=== PATIENT | male | born 1955 | race Caucasian/White ===

== ENCOUNTER 2022-09-30 10:11 | Inpatient (IN) | payer OTHER, MEDICARE ==
[~2022-09-30] VITALS: Ht 190.5 cm; Wt 157.9 kg
[2022-09-30] VITALS (9 sets, daily range): BP systolic 121–148; BP diastolic 72–92
[2022-09-30] MEDS ORDERED: IOHEXOL 350 MG/ML 100ML INFUS..BTL IV ONE ×2 (14:36→14:40)
[2022-09-30] MEDS ORDERED: VERAPAMIL HCL 2.5 MG/ML VIAL ONE (14:36)
[2022-09-30] MEDS ORDERED: IOHEXOL-350 50ML VIAL IV ONE (14:36)
[2022-09-30] MEDS ORDERED: HEPARIN 10,000 UNIT/10ML (1,000 UNIT/ML) VIAL ONE (14:36)
[2022-09-30] MEDS ORDERED: MIDAZOLAM HCL 1 MG/ML 2ML VIAL ONE ×2 (14:37→15:26)
[2022-09-30] MEDS ORDERED: FENTANYL CITRATE PF 50 MCG/1 ML 2ML VIAL ONE (14:37)
[2022-09-30] MEDS ORDERED: LIDOCAINE HCL 400MG/20ML VIAL ONE (14:37)
[2022-09-30] MEDS ORDERED: NITROGLYCERIN 50MG VIAL ONE (14:45)
[2022-09-30] MEDS ORDERED: 0.9%NACL 1000ML 1,000 ML IV SCH (16:00)
[2022-09-30] MEDS ORDERED: DEXTROSE 50%-WATER 50 ML DISP.SYRIN IV PRN ×2 (16:00→17:00)
[2022-09-30] MEDS ORDERED: GLUCAGON 1MG KIT 1 MG ML IM PRN ×2 (16:00→17:00)
[2022-09-30] MEDS ORDERED: ONDANSETRON 4MG INJ IVP PRN (17:00)
[2022-09-30] MEDS ORDERED: MORPHINE 2 MG SYG IVP PRN (17:00)
[2022-09-30] MEDS ORDERED: ACETAMINOPHEN 325 MG TAB PO PRN (17:00)
[2022-09-30] MEDS: ATORVASTATIN 40 MG TABLET PO SCH (22:09)
[2022-09-30] MEDS ORDERED: LOSA100T58 PO (22:11)
[2022-09-30] MEDS ORDERED: GLIM4TAB36 PO (22:11)
[2022-09-30] MEDS: INSULIN HUMULIN R 100 UNIT/ML 3ML SQ SCH (22:16)
[2022-10-01 00:32] VITALS: BP 134/77
[2022-10-01 04:08] LABS: HEMATOCRIT 39.6 % (42-54); MEAN CORPUSCULAR HEMOGLOBIN 30.5 pg (27.0-33.0); MEAN CORPUSCULAR HGB CONC 32.8 g/dL (32.0-36.0); RED BLOOD CELL COUNT(AUTO) 4.26 MIL/uL (4.50-6.20); RED CELL DISTRIBUTION WIDTH 12.6 % (11.0-15.5); WHITE BLOOD COUNT (AUTO) 7.7 K/uL (4.8-10.8)
[2022-10-01 04:28] LABS: CREATININE 0.8 mg/dL (0.5-1.5); POTASSIUM 3.9 mmol/L (3.5-5.1)
[2022-10-01 05:21] VITALS: BP 132/76
[2022-10-01] MEDS: INSULIN HUMULIN R 100 UNIT/ML 3ML SQ SCH ×4 (07:22→20:48)
[2022-10-01] MEDS: ASPIRIN 81MG CHEW TAB PO SCH (08:28)
[2022-10-01 08:31] VITALS: BP 136/70
[2022-10-01] MEDS: METOPROLOL SUCCINATE 25 MG TAB.SR.24H PO SCH (11:41)
[2022-10-01 12:22] VITALS: BP 131/75
[2022-10-01 16:34] VITALS: BP 139/75
[2022-10-01] MEDS ORDERED: CEFAZOLIN SODIUM 2 GM VIAL IVPB SCH (17:30)
[2022-10-01 17:53] LABS: ABG OXYGEN SATURATION 96.2 % (95.0-99.0); ABG PCO2 32 mmHg (35-48)
[2022-10-01 20:03] VITALS: BP 124/70
[2022-10-01] MEDS: ATORVASTATIN 40 MG TABLET PO SCH (20:11)
[2022-10-02] VITALS (7 sets, daily range): BP systolic 84–132; BP diastolic 45–72
[2022-10-02 03:33] LABS: HEMATOCRIT 36.9 % (42-54); MEAN CORPUSCULAR HEMOGLOBIN 30.3 pg (27.0-33.0); MEAN CORPUSCULAR HGB CONC 32.8 g/dL (32.0-36.0); MEAN CORPUSCULAR VOLUME 92.3 fL (79-99); RED CELL DISTRIBUTION WIDTH 12.4 % (11.0-15.5); WHITE BLOOD COUNT (AUTO) 6.6 K/uL (4.8-10.8)
[2022-10-02 03:47] LABS: HEMOGLOBIN A1C 9.8 % (4.0-6.0)
[2022-10-02 03:53] LABS: CREATININE 0.7 mg/dL (0.5-1.5); POTASSIUM 3.5 mmol/L (3.5-5.1)
[2022-10-02 04:03] LABS: ALBUMIN 2.6 g/dL (3.5-5.0); TOTAL PROTEIN, SERUM 6.8 g/dL (6.0-8.3)
[2022-10-02 04:11] LABS: INR 1.05 (0.85-1.15); PROTHROMBIN TIME 11.4 SEC (9.6-11.6)
[2022-10-02 04:13] LABS: PARTIAL THROMBOPLASTIN TIME 32.4 SEC (26.3-35.5)
[2022-10-02] MEDS: INSULIN HUMULIN R 100 UNIT/ML 3ML SQ SCH ×3 (06:27→15:53)
[2022-10-02] MEDS: ASPIRIN 81MG CHEW TAB PO SCH (09:24)
[2022-10-02] MEDS: METOPROLOL SUCCINATE 25 MG TAB.SR.24H PO SCH (09:24)
[2022-10-02] MEDS ORDERED: NITROGLYCERIN 50MG/D5W 250ML 1 BOT ONE (13:12)
[2022-10-02] MEDS ORDERED: NOREPINEPHRINE BITARTRATE 8 MG in 0.9% NACL 250ML 250 ML IV PRN (14:30)
[2022-10-02] MEDS ORDERED: EPINEPHRINE PF 1MG (1:1,000) 10 MG in 0.9% NACL 250ML 240 ML IV PRN (14:30)
[2022-10-02] MEDS ORDERED: AMINOCAPROIC ACID 5,000MG VIAL 15,000 MG in 0.9% NACL 500ML IV.SOLN 420 ML IV PRN (14:30)
[2022-10-02] MEDS ORDERED: HEPARIN 10,000 UNIT/10ML (1,000 UNIT/ML) VIAL ONE ×2 (17:11→19:01)
[2022-10-02] MEDS ORDERED: CEFAZOLIN SODIUM 1 GM VIAL ONE ×2 (17:20→17:31)
[2022-10-02] MEDS ORDERED: PAPAVERINE HCL 30 MG/ML 2ML VIAL ONE (17:20)
[2022-10-02] MEDS ORDERED: SODIUM BICARB 50MEQ 50ML VIAL 250 ML ONE (17:42)
[2022-10-02] MEDS ORDERED: ROCURONIUM BROMIDE 10MG/1ML 5ML VL ONE (18:16)
[2022-10-02] MEDS ORDERED: MIDAZOLAM HCL 1 MG/ML 2ML VIAL ONE ×2 (18:50→19:02)
[2022-10-02] MEDS ORDERED: ESMOLOL HCL 10 MG/ML 10 ML VIAL ONE (19:00)
[2022-10-02] MEDS ORDERED: PROTAMINE SULFATE 10 MG/ML 25ML VIAL IV ONE (19:00)
[2022-10-02] MEDS ORDERED: NOREPINEPHRINE BITARTRATE 1 MG/1 ML ML IV ONE (19:01)
[2022-10-02] MEDS ORDERED: AMINOCAPROIC ACID 5,000MG VIAL ONE (19:01)
[2022-10-02] MEDS ORDERED: LIDOCAINE PF 100MG/5ML (2%) SYRINGE 5ML ONE ×2 (19:01→19:03)
[2022-10-02] MEDS ORDERED: EPINEPHRINE PF 1MG (1:1,000) 1 MG/ML AMP ONE (19:01)
[2022-10-02] MEDS ORDERED: SODIUM BICARB 50MEQ 50ML VIAL 150 ML ONE (19:01)
[2022-10-02] MEDS ORDERED: ROCURONIUM 10MG/1ML SYR 10 MG/ML ML ONE (19:02)
[2022-10-02] MEDS ORDERED: PROPOFOL 10 MG/ML 20ML VIAL IV ONE (19:02)
[2022-10-02] MEDS ORDERED: FENTANYL CITRATE PF 50 MCG/1 ML 20ML VIAL IJ ONE (19:02)
[2022-10-02] MEDS ORDERED: ETOMIDATE 20MG VIAL ONE (19:03)
[2022-10-02 19:42] LABS: ABG BASE EXCESS -1.9 mmol/L (-2.0-3.0); ABG HCO3 22.2 mmol/L (21.0-28.0); ABG OXYGEN SATURATION 99.8 % (95.0-99.0); ABG PCO2 36 mmHg (35-48)
[2022-10-02] MEDS ORDERED: EPINEPHRINE IV PRN (20:00)
[2022-10-02] MEDS ORDERED: POTASSIUM PHOS 15 mMOL+NS250ML 250 ML IV PRN (20:00)
[2022-10-02] MEDS ORDERED: MORPHINE 2 MG SYG IV PRN (20:00)
[2022-10-02] MEDS ORDERED: ONDANSETRON 4MG INJ IV PRN (20:00)
[2022-10-02] MEDS ORDERED: PROPOFOL 1000 MG/100 ML 100 ML IV PRN (20:00)
[2022-10-02] MEDS ORDERED: 0.9%NACL 10ML VIAL IVP PRN (20:00)
[2022-10-02] MEDS ORDERED: MORPHINE 4 MG SYG IV PRN (20:00)
[2022-10-02] MEDS ORDERED: 0.9% NACL 500ML IV.SOLN 500 ML IV SCH (20:00)
[2022-10-02] MEDS ORDERED: GLUCAGON 1MG KIT 1 MG ML IM PRN (20:00)
[2022-10-02] MEDS ORDERED: ACETAMINOPHEN 650 MG SUPPOSITORY RC PRN (20:00)
[2022-10-02] MEDS ORDERED: DEXTROSE 50%-WATER 50 ML DISP.SYRIN IV PRN (20:00)
[2022-10-02] MEDS ORDERED: ALBUMIN (HUMAN) 5% 250 ML IV PRN (20:00)
[2022-10-02] MEDS ORDERED: NOREPINEPHRIN 4MG/NS 250ML 250 ML IV PRN (20:00)
[2022-10-02] MEDS ORDERED: 0.9%NACL 1000ML 1,000 ML IV SCH (20:00)
[2022-10-02] MEDS ORDERED: NACL 0.9% IV PRN (20:00)
[2022-10-02] MEDS ORDERED: AMINOCAPROIC ACID 5,000MG VIAL 15,000 MG in 0.9% NACL 250ML 250 ML IV SCH (20:00)
[2022-10-02] MEDS ORDERED: NITROGLYCERIN 50MG/D5W 250ML 250 BOT IV SCH (20:00)
[2022-10-02] MEDS ORDERED: SODIUM BICARB 50MEQ 50ML VIAL 200 ML ONE (20:19)
[2022-10-02] MEDS ORDERED: AMIODARONE 150MG VIAL ONE (20:20)
[2022-10-02 20:35] LABS: ABG BASE EXCESS -3.6 mmol/L (-2.0-3.0); ABG OXYGEN SATURATION 99.6 % (95.0-99.0); ABG PCO2 36 mmHg (35-48)
[2022-10-02 21:24] LABS: ABG BASE EXCESS 2.4 mmol/L (-2.0-3.0); ABG OXYGEN SATURATION 99.4 % (95.0-99.0); ABG PCO2 37 mmHg (35-48)
[2022-10-02 21:48] LABS: ABG BASE EXCESS -1.5 mmol/L (-2.0-3.0); ABG HCO3 22.9 mmol/L (21.0-28.0); ABG OXYGEN SATURATION 99.3 % (95.0-99.0); ABG PCO2 38 mmHg (35-48)
[2022-10-02 22:16] LABS: ABG BASE EXCESS 7.7 mmol/L (-2.0-3.0); ABG HCO3 32.3 mmol/L (21.0-28.0); ABG OXYGEN SATURATION 99.1 % (95.0-99.0); ABG PCO2 46 mmHg (35-48)
[2022-10-02] MEDS ORDERED: NEOSTIGMINE 5MG/5ML SYR IV ONE (22:52)
[2022-10-02] MEDS ORDERED: GLYCOPYRROLATE 1 MG/5 ML SYRINGE ONE (22:53)
[2022-10-02 23:31] LABS: ABG BASE EXCESS -5.6 mmol/L (-2.0-3.0); ABG HCO3 20.5 mmol/L (21.0-28.0); ABG OXYGEN SATURATION 90.3 % (95.0-99.0); ABG PCO2 43 mmHg (35-48)
[2022-10-02 23:36] LABS: HEMATOCRIT 35.1 % (42-54); MEAN CORPUSCULAR HEMOGLOBIN 30.4 pg (27.0-33.0); MEAN CORPUSCULAR HGB CONC 33.3 g/dL (32.0-36.0); MEAN CORPUSCULAR VOLUME 91.2 fL (79-99); RED BLOOD CELL COUNT(AUTO) 3.85 MIL/uL (4.50-6.20); RED CELL DISTRIBUTION WIDTH 12.2 % (11.0-15.5); WHITE BLOOD COUNT (AUTO) 12.7 K/uL (4.8-10.8)
[2022-10-02 23:49] LABS: CREATININE 0.8 mg/dL (0.5-1.5); INR 1.24 (0.85-1.15); MAGNESIUM 1.6 mg/dL (1.80-2.40); PHOSPHORUS 4.8 mg/dL (2.5-4.9); POTASSIUM 3.5 mmol/L (3.5-5.1); PROTHROMBIN TIME 13.4 SEC (9.6-11.6)
[2022-10-02 23:50] LABS: PARTIAL THROMBOPLASTIN TIME 23.8 SEC (26.3-35.5)
[2022-10-03] VITALS (96 sets, daily range): BP systolic 79–170; BP diastolic 33–86
[2022-10-03] MEDS ORDERED: DEXMEDETOMIDINE 400MCG/NS100ML IV ONE (00:23)
[2022-10-03] MEDS: MAGNESIUM 2GM PREMIX 50ML 50 ML IV PRN ×2 (00:38→14:13)
[2022-10-03] MEDS: SODIUM BICARB 50MEQ 50ML VIAL IV PRN ×4 (00:38→17:30)
[2022-10-03] MEDS: POTASSIUM CHLORIDE 20MEQ/100ML 100 ML IV PRN ×8 (00:39→23:49)
[2022-10-03 00:40] LABS: ABG HCO3 24.5 mmol/L (21.0-28.0); ABG OXYGEN SATURATION 94.7 % (95.0-99.0); ABG PCO2 44 mmHg (35-48)
[2022-10-03] MEDS: CEFAZOLIN SODIUM 1 GM VIAL IV SCH ×3 (01:11→16:40)
[2022-10-03] MEDS: INSULIN REGULAR, HUMAN 3ML 100 UNIT in 0.9%NACL 100ML 99 ML IV SCH ×4 (01:13→08:04)
[2022-10-03] MEDS: DEXMEDETOMIDINE 400MCG/NS100ML IV SCH ×3 (01:15→04:43)
[2022-10-03] MEDS: ATORVASTATIN 40 MG TABLET PO SCH ×2 (01:17→19:45)
[2022-10-03] MEDS: FAMOTIDINE 20MG VIAL IV SCH ×3 (01:17→19:45)
[2022-10-03 01:42] LABS: ABG BASE EXCESS 0.9 mmol/L (-2.0-3.0); ABG OXYGEN SATURATION 94.8 % (95.0-99.0); ABG PCO2 43 mmHg (35-48)
[2022-10-03 02:46] LABS: ABG BASE EXCESS 1.2 mmol/L (-2.0-3.0); ABG HCO3 25.7 mmol/L (21.0-28.0); ABG OXYGEN SATURATION 97.5 % (95.0-99.0); ABG PCO2 41 mmHg (35-48)
[2022-10-03 03:51] LABS: ABG BASE EXCESS 2.4 mmol/L (-2.0-3.0); ABG HCO3 26.5 mmol/L (21.0-28.0); ABG OXYGEN SATURATION 96.6 % (95.0-99.0); ABG PCO2 40 mmHg (35-48)
[2022-10-03 04:00] LABS: HEMATOCRIT 35.2 % (42-54); MEAN CORPUSCULAR HEMOGLOBIN 30.5 pg (27.0-33.0); MEAN CORPUSCULAR HGB CONC 33.2 g/dL (32.0-36.0); MEAN CORPUSCULAR VOLUME 91.9 fL (79-99); RED BLOOD CELL COUNT(AUTO) 3.83 MIL/uL (4.50-6.20); RED CELL DISTRIBUTION WIDTH 12.2 % (11.0-15.5); WHITE BLOOD COUNT (AUTO) 11.8 K/uL (4.8-10.8)
[2022-10-03 04:12] LABS: INR 1.16 (0.85-1.15); PROTHROMBIN TIME 12.5 SEC (9.6-11.6)
[2022-10-03 04:14] LABS: PARTIAL THROMBOPLASTIN TIME 25.9 SEC (26.3-35.5)
[2022-10-03 04:18] LABS: ALBUMIN 2.5 g/dL (3.5-5.0); PHOSPHORUS 3.3 mg/dL (2.5-4.9); POTASSIUM 3.9 mmol/L (3.5-5.1); TOTAL PROTEIN, SERUM 5.9 g/dL (6.0-8.3)
[2022-10-03 05:06] LABS: ABG BASE EXCESS 0.7 mmol/L (-2.0-3.0); ABG HCO3 24.4 mmol/L (21.0-28.0); ABG OXYGEN SATURATION 97.7 % (95.0-99.0); ABG PCO2 36 mmHg (35-48)
[2022-10-03 06:24] LABS: ABG BASE EXCESS 2.6 mmol/L (-2.0-3.0); ABG HCO3 25.9 mmol/L (21.0-28.0); ABG OXYGEN SATURATION 95.6 % (95.0-99.0); ABG PCO2 36 mmHg (35-48)
[2022-10-03] MEDS: ACETAMINOPHEN 325 MG TAB PO PRN ×2 (06:36→11:46)
[2022-10-03 07:37] LABS: ABG BASE EXCESS 2.1 mmol/L (-2.0-3.0); ABG HCO3 24.9 mmol/L (21.0-28.0); ABG OXYGEN SATURATION 95.9 % (95.0-99.0); ABG PCO2 33 mmHg (35-48)
[2022-10-03] MEDS ORDERED: 0.9%NACL 100ML 100 ML ONE (07:51)
[2022-10-03 08:32] LABS: ABG BASE EXCESS 4.1 mmol/L (-2.0-3.0); ABG HCO3 27.8 mmol/L (21.0-28.0); ABG PCO2 38 mmHg (35-48)
[2022-10-03] MEDS: TRAMADOL HCL 50 MG TABLET PO PRN ×2 (09:20→19:45)
[2022-10-03] MEDS ORDERED: ALBUMIN (HUMAN) 5% 500 ML IV SCH (09:30)
[2022-10-03] MEDS ORDERED: ASPIRIN 81 MG EC TAB ONE (09:50)
[2022-10-03] MEDS ORDERED: NOREPINEPHRIN 8MG/250ML NS PMX 250 ML IV ONE (09:52)
[2022-10-03 09:53] LABS: ABG BASE EXCESS 0.9 mmol/L (-2.0-3.0); ABG HCO3 23.7 mmol/L (21.0-28.0); ABG OXYGEN SATURATION 97.3 % (95.0-99.0); ABG PCO2 32 mmHg (35-48)
[2022-10-03] MEDS ORDERED: NOREPINEPHRINE 8MG/NS 250ML PREMIX IV SCH (10:00)
[2022-10-03] MEDS: ASPIRIN 81 MG EC TAB PO SCH (10:15)
[2022-10-03 11:43] LABS: ABG BASE EXCESS 6.1 mmol/L (-2.0-3.0); ABG HCO3 32.7 mmol/L (21.0-28.0); ABG OXYGEN SATURATION 96.5 % (95.0-99.0); ABG PCO2 56 mmHg (35-48)
[2022-10-03 11:57] LABS: ABG BASE EXCESS 5.1 mmol/L (-2.0-3.0); ABG HCO3 29.3 mmol/L (21.0-28.0); ABG OXYGEN SATURATION 95.9 % (95.0-99.0); ABG PCO2 41 mmHg (35-48)
[2022-10-03 13:09] LABS: ABG BASE EXCESS 2.7 mmol/L (-2.0-3.0); ABG HCO3 26.2 mmol/L (21.0-28.0); ABG OXYGEN SATURATION 96.9 % (95.0-99.0); ABG PCO2 37 mmHg (35-48)
[2022-10-03 13:26] LABS: HEMATOCRIT 32.8 % (42-54); MEAN CORPUSCULAR HEMOGLOBIN 30.2 pg (27.0-33.0); MEAN CORPUSCULAR HGB CONC 33.5 g/dL (32.0-36.0); MEAN CORPUSCULAR VOLUME 90.1 fL (79-99); RED BLOOD CELL COUNT(AUTO) 3.64 MIL/uL (4.50-6.20); RED CELL DISTRIBUTION WIDTH 12.4 % (11.0-15.5); WHITE BLOOD COUNT (AUTO) 9.1 K/uL (4.8-10.8)
[2022-10-03 14:35] LABS: ABG BASE EXCESS 0.6 mmol/L (-2.0-3.0); ABG HCO3 24.8 mmol/L (21.0-28.0); ABG OXYGEN SATURATION 95.3 % (95.0-99.0); ABG PCO2 38 mmHg (35-48)
[2022-10-03 17:26] LABS: ABG BASE EXCESS -0.8 mmol/L (-2.0-3.0); ABG HCO3 24.2 mmol/L (21.0-28.0); ABG OXYGEN SATURATION 93.9 % (95.0-99.0); ABG PCO2 41 mmHg (35-48)
[2022-10-03 21:29] LABS: ABG BASE EXCESS 0.4 mmol/L (-2.0-3.0); ABG HCO3 24.3 mmol/L (21.0-28.0); ABG PCO2 37 mmHg (35-48)
[2022-10-03] MEDS: CALCIUM GLUC 1GM 1 GM in 0.9%NACL 50ML 50 ML IV PRN (21:42)
[2022-10-04] VITALS (85 sets, daily range): BP systolic 104–175; BP diastolic 51–91
[2022-10-04 00:32] LABS: ABG BASE EXCESS -0.6 mmol/L (-2.0-3.0); ABG HCO3 24.1 mmol/L (21.0-28.0); ABG OXYGEN SATURATION 92.6 % (95.0-99.0); ABG PCO2 40 mmHg (35-48)
[2022-10-04] MEDS: TRAMADOL HCL 50 MG TABLET PO PRN ×2 (02:07→11:11)
[2022-10-04 04:30] LABS: ABG BASE EXCESS -1.8 mmol/L (-2.0-3.0); ABG OXYGEN SATURATION 96.4 % (95.0-99.0); ABG PCO2 39 mmHg (35-48)
[2022-10-04 04:36] LABS: CREATININE 0.8 mg/dL (0.5-1.5); MAGNESIUM 1.8 mg/dL (1.80-2.40); POTASSIUM 4.6 mmol/L (3.5-5.1)
[2022-10-04] MEDS: SODIUM BICARB 50MEQ 50ML VIAL IV PRN ×3 (04:41→17:36)
[2022-10-04] MEDS: CALCIUM GLUC 1GM 1 GM in 0.9%NACL 50ML 50 ML IV PRN ×4 (04:50→21:29)
[2022-10-04 06:04] LABS: HEMATOCRIT 30.7 % (42-54); MEAN CORPUSCULAR HEMOGLOBIN 30.2 pg (27.0-33.0); MEAN CORPUSCULAR HGB CONC 32.9 g/dL (32.0-36.0); MEAN CORPUSCULAR VOLUME 91.9 fL (79-99); RED BLOOD CELL COUNT(AUTO) 3.34 MIL/uL (4.50-6.20); RED CELL DISTRIBUTION WIDTH 12.7 % (11.0-15.5); WHITE BLOOD COUNT (AUTO) 10.7 K/uL (4.8-10.8)
[2022-10-04 06:10] LABS: ABG BASE EXCESS 1.8 mmol/L (-2.0-3.0); ABG HCO3 26.5 mmol/L (21.0-28.0); ABG OXYGEN SATURATION 95.2 % (95.0-99.0); ABG PCO2 42 mmHg (35-48)
[2022-10-04] MEDS: MAGNESIUM 2GM PREMIX 50ML 50 ML IV PRN (07:25)
[2022-10-04] MEDS: FUROSEMIDE 20 MG TABLET PO SCH ×2 (08:58→17:37)
[2022-10-04] MEDS: ASPIRIN 81 MG EC TAB PO SCH (08:58)
[2022-10-04] MEDS: FAMOTIDINE 20MG VIAL IV SCH ×2 (08:58→21:28)
[2022-10-04] MEDS ORDERED: DEXTROSE 50%-WATER 50 ML DISP.SYRIN IV PRN (12:00)
[2022-10-04 12:33] LABS: ABG BASE EXCESS -0.3 mmol/L (-2.0-3.0); ABG HCO3 24.4 mmol/L (21.0-28.0); ABG OXYGEN SATURATION 97.1 % (95.0-99.0); ABG PCO2 40 mmHg (35-48)
[2022-10-04] MEDS: ENOXAPARIN SODIUM 30 MG/0.3 ML SQ SCH (14:40)
[2022-10-04] MEDS: INSULIN HUMULIN R 100 UNIT/ML 3ML SQ SCH ×2 (16:30→21:00)
[2022-10-04] MEDS ORDERED: CALCIUM GLUC 1GM/10ML VIAL ONE (21:26)
[2022-10-04] MEDS: ATORVASTATIN 40 MG TABLET PO SCH (21:27)
[2022-10-05] VITALS (17 sets, daily range): BP systolic 118–141; BP diastolic 38–74
[2022-10-05 04:11] LABS: HEMATOCRIT 27.2 % (42-54); MEAN CORPUSCULAR HEMOGLOBIN 30.2 pg (27.0-33.0); MEAN CORPUSCULAR VOLUME 94.4 fL (79-99); RED BLOOD CELL COUNT(AUTO) 2.88 MIL/uL (4.50-6.20); RED CELL DISTRIBUTION WIDTH 12.3 % (11.0-15.5); WHITE BLOOD COUNT (AUTO) 9.1 K/uL (4.8-10.8)
[2022-10-05 04:33] LABS: CREATININE 0.9 mg/dL (0.5-1.5); MAGNESIUM 1.9 mg/dL (1.80-2.40); POTASSIUM 4.4 mmol/L (3.5-5.1); TOTAL PROTEIN, SERUM 5.8 g/dL (6.0-8.3)
[2022-10-05] MEDS: MAGNESIUM 2GM PREMIX 50ML 50 ML IV PRN (05:00)
[2022-10-05] MEDS: INSULIN HUMULIN R 100 UNIT/ML 3ML SQ SCH ×4 (06:38→20:11)
[2022-10-05] MEDS: ASPIRIN 81 MG EC TAB PO SCH (08:03)
[2022-10-05] MEDS: FUROSEMIDE 20 MG TABLET PO SCH ×2 (08:03→16:40)
[2022-10-05] MEDS: FAMOTIDINE 20MG VIAL IV SCH ×2 (08:04→20:09)
[2022-10-05] MEDS: ENOXAPARIN SODIUM 30 MG/0.3 ML SQ SCH (08:05)
[2022-10-05] MEDS: TRAMADOL HCL 50 MG TABLET PO PRN (20:09)
[2022-10-05] MEDS: METOPROLOL TARTRATE 25 MG TAB PO SCH (20:09)
[2022-10-05] MEDS: ATORVASTATIN 40 MG TABLET PO SCH (20:09)
[2022-10-06 00:04] VITALS: BP_SYST 115; BP_SYST 123; BP_DIAS 63; BP_DIAS 69
[2022-10-06 03:59] LABS: HEMATOCRIT 26.6 % (42-54); MEAN CORPUSCULAR HEMOGLOBIN 29.9 pg (27.0-33.0); MEAN CORPUSCULAR HGB CONC 32.7 g/dL (32.0-36.0); MEAN CORPUSCULAR VOLUME 91.4 fL (79-99); RED BLOOD CELL COUNT(AUTO) 2.91 MIL/uL (4.50-6.20); RED CELL DISTRIBUTION WIDTH 12.3 % (11.0-15.5); WHITE BLOOD COUNT (AUTO) 8.1 K/uL (4.8-10.8)
[2022-10-06 04:11] LABS: ALBUMIN 1.9 g/dL (3.5-5.0); CREATININE 0.7 mg/dL (0.5-1.5); MAGNESIUM 1.9 mg/dL (1.80-2.40); POTASSIUM 3.7 mmol/L (3.5-5.1); TOTAL PROTEIN, SERUM 5.9 g/dL (6.0-8.3)
[2022-10-06 04:44] VITALS: BP 115/69
[2022-10-06] MEDS ORDERED: LIDOCAINE HCL-MPF 1% 2ML VIAL IV PRN (05:00)
[2022-10-06] MEDS ORDERED: POTASSIUM CHLORIDE 10% ELIXIR 20 MEQ/15 ML UDCUP PO PRN (05:00)
[2022-10-06] MEDS: MAGNESIUM 2GM PREMIX 50ML 50 ML IV PRN (05:23)
[2022-10-06] MEDS: KCL 20 MEQ ERTAB PO PRN ×2 (05:23→06:37)
[2022-10-06] MEDS: INSULIN HUMULIN R 100 UNIT/ML 3ML SQ SCH ×4 (07:30→21:35)
[2022-10-06 08:00] VITALS: BP 127/66
[2022-10-06] MEDS: METOPROLOL TARTRATE 25 MG TAB PO SCH ×2 (08:35→21:39)
[2022-10-06] MEDS: FERROUS SULFATE 325 MG TABLET.DR PO SCH (08:35)
[2022-10-06] MEDS: ASPIRIN 81 MG EC TAB PO SCH (08:36)
[2022-10-06] MEDS: CLOPIDOGREL 75MG TAB PO SCH (08:37)
[2022-10-06] MEDS: FAMOTIDINE 20MG VIAL IV SCH ×2 (08:38→21:39)
[2022-10-06] MEDS: ENOXAPARIN SODIUM 40 MG/0.4 ML SYRINGE SQ SCH (08:38)
[2022-10-06] MEDS: TRAMADOL HCL 50 MG TABLET PO PRN (08:53)
[2022-10-06] MEDS: FUROSEMIDE 20 MG TABLET PO SCH ×2 (08:53→16:45)
[2022-10-06 12:00] VITALS: BP 121/64
[2022-10-06 16:00] VITALS: BP 122/66
[2022-10-06] MEDS ORDERED: LACTULOSE 20 GM/30 ML UDCUP PO SCH (17:00)
[2022-10-06 20:06] VITALS: BP 136/67
[2022-10-06] MEDS: ATORVASTATIN 40 MG TABLET PO SCH (21:39)
[2022-10-07] VITALS (7 sets, daily range): BP systolic 116–130; BP diastolic 57–71
[2022-10-07] MEDS: TRAMADOL HCL 50 MG TABLET PO PRN ×4 (01:49→21:22)
[2022-10-07 04:23] LABS: EOSINOPHILS % (AUTO) 2.8 % (0.0-8.0); HEMATOCRIT 28.8 % (42-54); MEAN CORPUSCULAR HGB CONC 32.6 g/dL (32.0-36.0); MONOCYTES % (AUTO) 7.6 % (3.0-13.0); NEUTROPHILS % (AUTO) 71.9 % (40.0-77.0); NUCLEATED RED BLOOD CELLS 0.5 % (0.0-0.19); PLATELET COUNT (AUTO) 316 K/uL (130-400); RED BLOOD CELL COUNT(AUTO) 3.13 MIL/uL (4.50-6.20); RED CELL DISTRIBUTION WIDTH 12.3 % (11.0-15.5); WHITE BLOOD COUNT (AUTO) 8.3 K/uL (4.8-10.8)
[2022-10-07 04:41] LABS: CREATININE 0.7 mg/dL (0.5-1.5); POTASSIUM 3.6 mmol/L (3.5-5.1); THYROID STIMULATING HORMONE 9.34 uIU/mL (0.36-3.74); TOTAL PROTEIN, SERUM 6.2 g/dL (6.0-8.3)
[2022-10-07 04:49] LABS: % IRON SATURATION 10.7 % (30-44)
[2022-10-07] MEDS: KCL 20 MEQ ERTAB PO PRN (05:05)
[2022-10-07] MEDS: INSULIN HUMULIN R 100 UNIT/ML 3ML SQ SCH ×4 (06:46→20:00)
[2022-10-07] MEDS: FERROUS SULFATE 325 MG TABLET.DR PO SCH (09:20)
[2022-10-07] MEDS: ASPIRIN 81 MG EC TAB PO SCH (09:20)
[2022-10-07] MEDS: CLOPIDOGREL 75MG TAB PO SCH (09:20)
[2022-10-07] MEDS: METOPROLOL SUCCINATE 25 MG TAB.SR.24H PO SCH ×2 (09:20→19:59)
[2022-10-07] MEDS: FAMOTIDINE 20MG VIAL IV SCH ×2 (09:21→19:58)
[2022-10-07] MEDS: ENOXAPARIN SODIUM 40 MG/0.4 ML SYRINGE SQ SCH (09:21)
[2022-10-07] MEDS: FUROSEMIDE 20 MG TABLET PO SCH ×2 (09:28→16:07)
[2022-10-07] MEDS: DOCUSATE SODIUM 100 MG CAP PO SCH ×2 (12:16→20:00)
[2022-10-07] MEDS: IRON SUCROSE COMPLEX 300 MG in 0.9% NACL 250ML 250 ML IV SCH (14:21)
[2022-10-07] MEDS: ATORVASTATIN 40 MG TABLET PO SCH (19:58)
[2022-10-08 04:00] VITALS: BP 118/51
[2022-10-08] MEDS: INSULIN HUMULIN R 100 UNIT/ML 3ML SQ SCH ×4 (05:49→21:35)
[2022-10-08 08:57] VITALS: BP 126/63
[2022-10-08] MEDS ORDERED: FUROSEMIDE 40MG VIAL IV SCH (09:00)
[2022-10-08] MEDS: FUROSEMIDE 20 MG TABLET PO SCH ×2 (09:00→17:00)
[2022-10-08] MEDS ORDERED: LISINOPRIL 5 MG TABLET PO SCH (09:00)
[2022-10-08] MEDS: ENOXAPARIN SODIUM 40 MG/0.4 ML SYRINGE SQ SCH (09:18)
[2022-10-08 09:22] LABS: BASOPHILS % (AUTO) 0.9 % (0.0-5.0); HEMATOCRIT 35.1 % (42-54); LYMPHOCYTES % (AUTO) 12.3 % (21.0-51.0); MEAN CORPUSCULAR HEMOGLOBIN 29.7 pg (27.0-33.0); MEAN CORPUSCULAR HGB CONC 32.5 g/dL (32.0-36.0); MEAN CORPUSCULAR VOLUME 91.4 fL (79-99); NEUTROPHILS % (AUTO) 76.5 % (40.0-77.0); PLATELET COUNT (AUTO) 409 K/uL (130-400); RED BLOOD CELL COUNT(AUTO) 3.84 MIL/uL (4.50-6.20); RED CELL DISTRIBUTION WIDTH 12.6 % (11.0-15.5); WHITE BLOOD COUNT (AUTO) 10.1 K/uL (4.8-10.8)
[2022-10-08] MEDS: FAMOTIDINE 20MG VIAL IV SCH ×2 (09:22→20:42)
[2022-10-08] MEDS: ASPIRIN 81 MG EC TAB PO SCH (09:22)
[2022-10-08] MEDS: DOCUSATE SODIUM 100 MG CAP PO SCH ×2 (09:23→20:51)
[2022-10-08] MEDS: CLOPIDOGREL 75MG TAB PO SCH (09:23)
[2022-10-08] MEDS: METOPROLOL SUCCINATE 25 MG TAB.SR.24H PO SCH ×2 (09:23→20:42)
[2022-10-08] MEDS: FERROUS SULFATE 325 MG TABLET.DR PO SCH (09:29)
[2022-10-08 09:38] LABS: ALBUMIN 2.2 g/dL (3.5-5.0); CREATININE 0.7 mg/dL (0.5-1.5); MAGNESIUM 1.8 mg/dL (1.80-2.40); TOTAL PROTEIN, SERUM 7.1 g/dL (6.0-8.3)
[2022-10-08] MEDS: KCL 20 MEQ ERTAB PO PRN ×2 (11:22→17:09)
[2022-10-08 12:27] VITALS: BP 135/75
[2022-10-08] MEDS ORDERED: COMPOUND IV MISC 1 EACH IVSOLN MISC PRN (12:30)
[2022-10-08 16:27] VITALS: BP 121/66
[2022-10-08] MEDS: IRON SUCROSE COMPLEX 300 MG in 0.9% NACL 250ML 250 ML IV SCH (16:46)
[2022-10-08] MEDS ORDERED: ACETAMINOPHEN 500 MG TABLET PO SCH (17:00)
[2022-10-08] MEDS: FUROSEMIDE 40MG VIAL IV SCH (17:09)
[2022-10-08] MEDS: ATORVASTATIN 40 MG TABLET PO SCH (20:42)
[2022-10-08] MEDS: TRAMADOL HCL 50 MG TABLET PO PRN (20:51)
[2022-10-08 23:36] VITALS: BP 122/72
[2022-10-09 03:49] VITALS: BP 140/64
[2022-10-09 04:25] LABS: BASOPHILS % (AUTO) 0.6 % (0.0-5.0); EOSINOPHILS % (AUTO) 2.7 % (0.0-8.0); HEMATOCRIT 30.1 % (42-54); LYMPHOCYTES % (AUTO) 18.5 % (21.0-51.0); MEAN CORPUSCULAR HEMOGLOBIN 29.8 pg (27.0-33.0); MEAN CORPUSCULAR HGB CONC 32.2 g/dL (32.0-36.0); MEAN CORPUSCULAR VOLUME 92.6 fL (79-99); MONOCYTES % (AUTO) 8.1 % (3.0-13.0); NEUTROPHILS % (AUTO) 67.8 % (40.0-77.0); NUCLEATED RED BLOOD CELLS 1.1 % (0.0-0.19); PLATELET COUNT (AUTO) 484 K/uL (130-400); RED BLOOD CELL COUNT(AUTO) 3.25 MIL/uL (4.50-6.20); RED CELL DISTRIBUTION WIDTH 12.8 % (11.0-15.5); WHITE BLOOD COUNT (AUTO) 9.6 K/uL (4.8-10.8)
[2022-10-09 04:38] LABS: CREATININE 0.7 mg/dL (0.5-1.5); MAGNESIUM 1.9 mg/dL (1.80-2.40); POTASSIUM 4.3 mmol/L (3.5-5.1)
[2022-10-09] MEDS: INSULIN HUMULIN R 100 UNIT/ML 3ML SQ SCH ×3 (05:45→16:28)
[2022-10-09] MEDS: FUROSEMIDE 40MG VIAL IV SCH ×2 (06:25→17:10)
[2022-10-09 07:59] VITALS: BP 149/77
[2022-10-09] MEDS: DOCUSATE SODIUM 100 MG CAP PO SCH (08:37)
[2022-10-09] MEDS: ASPIRIN 81 MG EC TAB PO SCH (08:38)
[2022-10-09] MEDS: ENOXAPARIN SODIUM 40 MG/0.4 ML SYRINGE SQ SCH (08:38)
[2022-10-09] MEDS: FAMOTIDINE 20MG VIAL IV SCH (08:38)
[2022-10-09] MEDS: FERROUS SULFATE 325 MG TABLET.DR PO SCH (08:38)
[2022-10-09] MEDS: METOPROLOL SUCCINATE 25 MG TAB.SR.24H PO SCH (08:38)
[2022-10-09] MEDS: FUROSEMIDE 20 MG TABLET PO SCH ×2 (08:39→08:40)
[2022-10-09] MEDS: LISINOPRIL 10 MG TABLET PO SCH ×2 (08:39→08:41)
[2022-10-09] MEDS: CLOPIDOGREL 75MG TAB PO SCH (08:39)
[2022-10-09 11:53] VITALS: BP 133/54
[2022-10-09 16:30] VITALS: BP 128/64
[2022-10-09] MEDS: TRAMADOL HCL 50 MG TABLET PO PRN (19:18)
== END 2022-10-09 23:08 | DRG 233 ==
LOC: 2DH 13:55 → 2CV 10-02 17:30 → 2CH 10-04 06:18 → 2DH 10-05 11:14
PROVIDERS: ADMIT Hospitalist; ATTEND Hospitalist
PROC: 4A023N7 Measurement of Cardiac Sampling and Pressure, Left Heart, Percutaneous Approach (ICD-10-PCS; 2022-09-30)
PROC: B2111ZZ Fluoroscopy of Multiple Coronary Arteries using Low Osmolar Contrast (ICD-10-PCS; 2022-09-30)
PROC: 021109W Bypass Coronary Artery, Two Arteries from Aorta with Autologous Venous Tissue, Open Approach (ICD-10-PCS; 2022-10-02)
PROC: 0PH000Z Insertion of Rigid Plate Internal Fixation Device into Sternum, Open Approach (ICD-10-PCS; 2022-10-02)
PROC: 02100Z9 Bypass Coronary Artery, One Artery from Left Internal Mammary, Open Approach (ICD-10-PCS; principal; 2022-10-02 15:00)
PROC: 06BP0ZZ Excision of Right Saphenous Vein, Open Approach (ICD-10-PCS; 2022-10-02 15:00)
DX: I11.0 Hypertensive heart disease with heart failure (principal); I21.4 Non-ST elevation (NSTEMI) myocardial infarction; I50.21 Acute systolic (congestive) heart failure; E87.1 Hypo-osmolality and hyponatremia; D62 Acute posthemorrhagic anemia; Z68.41 Body mass index [BMI] 40.0-44.9, adult; I25.2 Old myocardial infarction; E66.01 Morbid (severe) obesity due to excess calories; I25.10 Atherosclerotic heart disease of native coronary artery without angina pectoris; E78.00 Pure hypercholesterolemia, unspecified; E11.9 Type 2 diabetes mellitus without complications; J98.4 Other disorders of lung; Z79.899 Other long term (current) drug therapy; Z82.49 Family history of ischemic heart disease and other diseases of the circulatory system; Z87.891 Personal history of nicotine dependence; Z98.84 Bariatric surgery status
CPT/HCPCS: 36415; 36600; 71045; 80048; 80053; 80061; 82330; 82435; 82533; 82803; 82947; 82948; 83036; 83540; 83550; 83605; 83735; 83880; 83930; 83935; 84100; 84132; 84295; 84300; 84443; 85018; 85025; 85027; 85347; 85384; 85610; 85730; 86850; 86900; 86901; 86923; 87635; 87641; 92522; 93005; 93306; 93458; 93880; 93971; 94002; 94003; 97039; 99156; 99157; A7048; C1769; G0378; J0171; J0282; J0610; J0690; J1644; J1650; J1756; J1815; J1940; J2001; J2250; J2405; J2440; J2704; J2710; J2720; J3010; J3475; J3480; J3490; J7030; J7040; J7050; J7120; P9045; Q9967